=== PATIENT | male | born 1955 | race African-American/Black ===

== ENCOUNTER 2019-12-15 13:22 | Emergency (ER) | payer OTHER ==
[2019-12-15] MEDS ORDERED: Ketorolac Tromethamine 30 MG/ML VIAL ONE (14:11)
[2019-12-15] MEDS ORDERED: Lisinopril 20 MG TAB ONE (14:11)
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
[2019-12-16 14:26] LABS: SARS-CoV-2 MS2 Positive; SARS-CoV-2 N Gene Negative; SARS-CoV-2 S Gene Negative; SARS-CoV-2 by NAA Not Detected (NotDetected); SARS-CoV-2 orf1ab Negative
== END 2019-12-15 15:30 | disposition home or self-care (01) ==
LOC: NAV ERS 13:22
DX: S27.329A Contusion of lung, unspecified, initial encounter (principal); I10 Essential (primary) hypertension; Z20.828 Contact with and (suspected) exposure to other viral communicable diseases; V89.2XXA Person injured in unspecified motor-vehicle accident, traffic, initial encounter
CPT/HCPCS: 71250; 87635; 96372; J1885; U0003

== ENCOUNTER 2021-09-16 23:52 | Emergency (ER) | payer MEDICARE, OTHER ==
[2021-09-17] MEDS ORDERED: Ketorolac Tromethamine 30 MG/ML VIAL ONE (00:22)
[2021-09-17] MEDS ORDERED: Acetaminophen 325 MG TAB ONE (05:50)
== END 2021-09-17 08:10 | disposition home or self-care (01) ==
LOC: NAV ERS 23:52
DX: S13.9XXA Sprain of joints and ligaments of unspecified parts of neck, initial encounter (principal); S40.012A Contusion of left shoulder, initial encounter; E11.9 Type 2 diabetes mellitus without complications; I10 Essential (primary) hypertension; Z79.899 Other long term (current) drug therapy; Z79.84 Long term (current) use of oral hypoglycemic drugs; V43.62XA Car passenger injured in collision with other type car in traffic accident, initial encounter
CPT/HCPCS: 70450; 72125; 96372; J1885